=== PATIENT | female | born 1970 | race Two or more races ===

== ENCOUNTER 2020-04-23 14:02 | Emergency (ER) | payer BC ==
[~2020-04-23] VITALS: Ht 154.9 cm; Wt 81.6 kg
[~2020-04-23 14:02] MED LIST: ASPI81CH43; ATEN-60; HYDR12.524; LISI-275
[2020-04-23 15:53] LABS: Calcium 8.9 mg/dL (8.5-10.1); Potassium 3.2 mmol/L (3.5-5.1)
[2020-04-23 15:56] LABS: Albumin 3.5 g/dL (3.4-5.0); BUN/Creatinine Ratio 11.5
[2020-04-23 15:58] LABS: Basophils # (auto) 0.1 10 ^3/uL (0-0.2); Eosinophils # (auto) 0.1 10 ^3/uL (0-0.8); Lymphocytes # (auto) 1.3 10 ^3/uL (0.4-5.4); Monocytes # (auto) 0.4 10 ^3/uL (0-1.3)
[2020-04-23 16:01] LABS: Bilirubin, Total 0.7 mg/dL (0.2-1.0); Total Protein 7.3 g/dL (6.4-8.2)
[2020-04-23 16:02] LABS: Basophils % (auto) 0.8 % (0.0-2.0); Eosinophils % (auto) 0.7 % (0.0-7.0); Hematocrit 41.8 % (36.0-46.0); Hemoglobin 13.6 g/dL (12.2-16.2); Lymphocytes % (auto) 14.2 % (10.0-50.0); Mean Corpuscular Hemoglobin 26.4 pg (28.0-32.0); Mean Corpuscular Hgb Conc. 32.5 g/dL (32.0-36.0); Monocytes % (auto) 4.2 % (0.0-12.0); Neutrophils # (auto) 7.2 10 ^3/uL (1.6-8.6); Neutrophils % (auto) 80.1 % (37.0-80.0); Platelet Count (auto) 339 10^3/uL (140-450); Red Blood Cells 5.16 10^6/uL (4.0-5.20); Red Cell Distribution Width 14.9 % (11.8-14.3)
[2020-04-23] MEDS ORDERED: POTASSIUM EFFERVESENT TAB 25 MEQ PO ONE (16:45)
[2020-04-23] MEDS ORDERED: cloNIDine HCL 0.1 MG TAB PO ONE (17:00)
[2020-04-23 17:04] VITALS: BP 180/135
== END 2020-04-23 16:47 | disposition home or self-care (01) ==
LOC: ER 14:02
DX: J06.9 Acute upper respiratory infection, unspecified (principal); I10 Essential (primary) hypertension; E87.6 Hypokalemia; Z20.828 Contact with and (suspected) exposure to other viral communicable diseases
CPT/HCPCS: 36415; 71045; 80053; 83735; 84484; 85025; 87426; 93005

== ENCOUNTER 2020-09-13 03:27 | Emergency (ER) | payer BC ==
[~2020-09-13] VITALS: Ht 162.6 cm; Wt 81.6 kg
[2020-09-13 03:37] VITALS: BP 0/0
== END 2020-09-13 03:37 ==
LOC: EDUNIT# 03:27 → ER 03:27
DX: I46.9 Cardiac arrest, cause unspecified (principal)
CPT/HCPCS: 92950